=== PATIENT | male | born 1955 | race Caucasian/White ===

== ENCOUNTER 2020-11-11 12:27 | Day surgery (SDC) | payer MEDICARE, OTHER ==
[~2020-11-11 12:27] MED LIST: Lactated Ringers 1,000 ML IV SCH; Sodium Chloride 0.9% 10 ML SDV IV PRN; Sodium Chloride 0.9% 10 ML Syringe FLUSH PRN; Sodium Chloride 0.9% 2.5 ML Syringe FLUSH PRN
[2020-11-11] MEDS ORDERED: Ondansetron 4 MG/2 ML SDV ONE (12:58)
[2020-11-11] MEDS ORDERED: Propofol 200 MG/20 ML SDV ONE (12:59)
[2020-11-11] MEDS ORDERED: Midazolam 1 MG/ML 2 ML SDV ONE (12:59)
[2020-11-11] MEDS ORDERED: fentaNYL 100 MCG/2 ML SDV ONE (12:59)
--- NOTE | 2020-11-11 13:10 | PCM.PREANE ---
Preanesthetic Assessment - Anesthesia/Transfusion/Family Hx Anesthesia History: Prior Anesthesia Without Reaction Family History of Anesthesia Reaction: No Transfusion History: No Prior Transfusion(s) - Review of Systems General: No Symptoms Pulmonary: No Symptoms Cardiovascular: No Symptoms Gastrointestinal: No Symptoms Neurological: No Symptoms Other: Reports: None - Physical Assessment NPO Status Date: 11/11/20 NPO Status Time: 00:01 Height: 5 ft 10 in Weight: 208 lb ASA Class: 2 Mental Status: Alert & Oriented x3 Airway Class: Mallampati = 2 Dentition: Reports: Normal Dentition ROM/Head Extension: Full Lungs: Clear to Auscultation, Normal Respiratory Effort Cardiovascular: Regular Rate, Regular Rhythm - Allergies Allergies/Adverse Reactions: Allergies Allergy/AdvReac Type Severity Reaction Status Date / Time No Known Allergies Allergy Verified 11/05/20 10:15 - Anesthesia Plan Pre-Op Medication Ordered: None - Acknowledgements Anesthesia Type Planned: General Anesthesia Pt an Appropriate Candidate for the Planned Anesthesia: Yes Alternatives and Risks of Anesthesia Discussed w Pt/Guardian: Yes Pt/Guardian Understands and Agrees with Anesthesia Plan: Yes Additional Comments: npo titus w cpap no cv problems tob none etoh occ par no questions mbi 30 PreAnesthesia Questionnaire HEENT History: Reports: Other (See Below) Other HEENT History: uses reading glasses Cardiovascular History: Reports: High Cholesterol Respiratory History: Reports: Sleep Apnea Other Respiratory History: uses CPAP every night Gastrointestinal History: Reports: Diverticulosis Genitourinary History: Reports: None Musculoskeletal History: Reports: Fracture Other Musculoskeletal History: hx of fx left arm and leg Oncologic (Cancer) History: Reports: Malignant Melanoma Other Oncologic History: removed from neck- early stage- no treatment Dermatologic History: Reports: Melanoma - Past Surgical History Head Surgeries/Procedures: Reports: None Cardiovascular Surgical History: Reports: None GI Surgical History: Reports: Colonoscopy Male Surgical History: Reports: None Musculoskeletal Surgical History: Reports: ORIF Other Musculoskeletal Surgeries/Procedures:: ORIF left forearm (has plate), ORIF left ankle/foot (Has pin) Dermatological Surgical History: Reports: Skin Biopsy - SUBSTANCE USE Tobacco Use Status *Q: Former Tobacco User Tobacco Use Within Last Twelve Months: No Recreational Drug Use History: No - HOME MEDS Home Medications: Home Meds Ascorbic Acid [Vitamin C] 1,000 mg PO DAILY 11/05/20 [History] Aspirin [Adult Low Dose Aspirin EC] 81 mg PO DAILY 11/05/20 [History] Cholecalciferol (Vitamin D3) [Vitamin D3] 2,000 unit PO DAILY 11/05/20 [History] Fish Oil/Borage/Flax/Om3,6,9 1 [[place]eno 3-6-9 1,200 mg Softgel] 1,200 mg PO DAILY 11/05/20 [History] Multivitamin 1 tab PO DAILY 11/05/20 [History] atorvaSTATin Calcium [Atorvastatin Calcium] 20 mg PO DAILY 11/05/20 [History] - CURRENT (IN HOUSE) MEDS Current Meds: Current Medications Lactated Ringer's (Ringers, Lactated) 1,000 mls @ 125 mls/hr IV ASDIRECTED [facility] Last Admin: 11/11/20 13:06 Dose: 125 mls/hr Documented by: Sodium Chloride (Sodium Chloride 0.9% 10 Ml Syringe) 10 ml FLUSH ASDIRECTED PRN PRN Reason: Keep Vein Open Sodium Chloride (Sodium Chloride 0.9% 2.5 Ml Syringe) 2.5 ml FLUSH ASDIRECTED PRN PRN Reason: Keep Vein Open Sodium Chloride (Sodium Chloride 0.9% 10 Ml Syringe) 10 ml FLUSH ASDIRECTED PRN PRN Reason: Keep Vein Open Sodium Chloride (Sodium Chloride 0.9% 2.5 Ml Syringe) 2.5 ml FLUSH ASDIRECTED PRN PRN Reason: Keep Vein Open Sodium Chloride (Sodium Chloride 0.9% 10 Ml Sdv) 10 ml IV ASDIRECTED PRN PRN Reason: IV Use Discontinued Medications Fentanyl (Fentanyl 100 Mcg/2 Ml Sdv) Confirm Administered Dose 100 mcg .ROUTE .STK-MED ONE Stop: 11/11/20 13:00 Midazolam HCl (Midazolam 1 Mg/Ml 2 Ml Sdv) Confirm Administered Dose 2 mg .ROUTE .STK-MED ONE Stop: 11/11/20 13:00 Ondansetron HCl (Ondansetron 4 Mg/2 Ml Sdv) Confirm Administered Dose 4 mg .ROUTE .STK-MED ONE Stop: 11/11/20 12:59 Propofol (Propofol 200 Mg/20 Ml Sdv) Confirm Administered Dose 200 mg .ROUTE . STK-MED ONE Stop: 11/11/20 13:00
--- NOTE | 2020-11-11 14:41 | PCM.OPNOTE ---
- General Post-Op/Procedure Note Date of Surgery/Procedure: 11/11/20 Operative Procedure(s): Screening colonoscopy with polypectomy Findings: Ascending colon polyp, sigmoid colon diverticulosis Pre Op Diagnosis: Family history of colon cancer Post-Op Diagnosis: Ascending colon polyp, sigmoid diverticulosis Primary Surgeon: Vy Causey Condition: Good
--- NOTE | 2020-11-11 15:03 | PCM48HPAN ---
Post Anesthesia Note - EVALUATION WITHIN 48HRS OF ANESTHETIC Vital Signs in Normal Range: Yes Patient Participated in Evaluation: Yes Respiratory Function Stable: Yes Airway Patent: Yes Cardiovascular Function Stable: Yes Hydration Status Stable: Yes Pain Control Satisfactory: Yes Nausea and Vomiting Control Satisfactory: Yes Mental Status Recovered: Yes Vital Signs: Last Vital Signs Temp 97.2 F 11/11/20 12:40 Pulse 62 11/11/20 14:50 Resp 10 L 11/11/20 14:50 BP 116/70 11/11/20 14:50 Pulse Ox 94 L 11/11/20 14:50
--- NOTE | 2020-11-11 15:03 | PCM.POSTAN ---
POST ANESTHESIA ASSESSMENT - MENTAL STATUS Mental Status: Alert (no anesthetic problems), Oriented - VITAL SIGNS Vital Signs: Last Vital Signs Temp 97.2 F 11/11/20 12:40 Pulse 62 11/11/20 14:50 Resp 10 L 11/11/20 14:50 BP 116/70 11/11/20 14:50 Pulse Ox 94 L 11/11/20 14:50 - RESPIRATORY Respiratory Status: Respiratory Rate WNL, Airway Patent, O2 Saturation Stable - CARDIOVASCULAR CV Status: Pulse Rate WNL, Blood Pressure Stable - GASTROINTESTINAL GI Status: No Symptoms - POST OP HYDRATION Hydration Status: Adequate & Stable
--- NOTE | 2020-11-11 22:14 | OR ---
SURGEON: VY CAUSEY MD DATE OF PROCEDURE: 11/11/2020 PREOPERATIVE DIAGNOSES: Family history of colon cancer, history of diverticulosis. POSTOPERATIVE DIAGNOSES: 1. Ascending colon polyp. 2. Sigmoid colon diverticulosis. PROCEDURES PERFORMED: Screening colonoscopy with polypectomy. PRIMARY SURGEON: Vy Causey MD ANESTHESIA: MAC. INSTRUMENT USED: Olympus colonoscope. EXTENT OF THE EXAMINATION: To the cecum. PREPARATION: Good. LIMITATIONS: None. INDICATIONS FOR EXAMINATION: The patient is a 65-year-old male, who presents to the clinic for a repeat colonoscopy. He had one 10 years ago and was found to have diverticulosis. In that time, his father was diagnosed with colon cancer. He denies any changes in his bowel habits. The patient and I discussed the need for a colonoscopy. I explained the procedure, expected perioperative course, and the risks. He verbalized understanding and wishes to proceed. PROCEDURE IN DETAIL: The patient was brought to the endoscopy suite and placed in the left lateral decubitus position. A time-out was completed, verifying the patient's name, age, date of , allergies, and procedure to be performed. Monitored anesthesia care was induced, and continuous oxygen was provided via nasal cannula throughout the procedure. After adequate sedation was achieved, a digital rectal exam was performed. This exam was within normal limits. A well- lubricated colonoscope was inserted in the rectum and advanced under direct visualization to the level of the cecum. The cecum was identified by both visual and anatomic landmarks. A photograph was taken of the cecal cap; however, I was unable to retroflex the scope within the cecum due to looping of the scope more proximally. The scope was then straightened out and fully withdrawn while examining the color, texture, anatomy, and integrity of the mucosa from the cecum to the anal canal. The patient was noted to have a small ascending colon polyp in the distal ascending colon. This was removed in a piecemeal fashion using a cold biopsy forceps. The patient was noted to have diverticulosis throughout the sigmoid colon. The remainder of the exam was normal. The scope was brought into the rectum and retroflexed to allow visualization of the anal canal opening. This appeared normal, and a photograph was taken. The scope was then straightened out and fully withdrawn. The cecum- to-anus time was 9 minutes. The patient tolerated the procedure well and was transferred to the PACU in stable condition. ENDOSCOPIC DIAGNOSES: 1. Ascending colon polyp. 2. Sigmoid colon diverticulosis. RECOMMENDATION: Follow up in clinic in 2 weeks. МАРИНА GARCIA /[id number]
== END 2020-11-11 15:15 | disposition home or self-care (01) ==
LOC: MW.SDS 12:27
PROVIDERS: ATTEND Surgery
DX: Z12.11 Encounter for screening for malignant neoplasm of colon (principal); K57.30 Diverticulosis of large intestine without perforation or abscess without bleeding; K63.5 Polyp of colon; G47.31 Primary central sleep apnea; E78.00 Pure hypercholesterolemia, unspecified; Z79.82 Long term (current) use of aspirin; Z79.899 Other long term (current) drug therapy; Z80.0 Family history of malignant neoplasm of digestive organs; Z98.890 Other specified postprocedural states; Z87.891 Personal history of nicotine dependence
CPT/HCPCS: 45380; 88305; J2250; J2405; J2704; J3010; J7120; 00812

== ENCOUNTER 2025-01-13 22:00 | Emergency (ER) | payer MEDICARE, OTHER ==
[2025-01-14 00:10] LABS: HEMATOCRIT 46.2 % (42.0-52.0); HEMOGLOBIN 16.1 g/dL (14.0-18.0); MEAN CORPUSCULAR HEMOGLOBIN 31.4 pg (28.0-32.0); MEAN CORPUSCULAR HGB CONC 34.8 g/dL (32.0-36.0); MEAN CORPUSCULAR VOLUME 90.2 fL (83.0-99.0); PLATELET COUNT,PLT 250 K/uL (150-400); RED BLOOD CELL COUNT 5.12 M/uL (4.52-5.90); WHITE BLOOD CELL COUNT,WBC 10.82 K/uL (3.9-11.3)
[2025-01-14 00:38] LABS: CREATININE 1.3 mg/dL (0.8-1.3); EST CRCL DRUG DOSING (CG) 52.87 mL/min; MAGNESIUM 1.9 mg/dL (1.8-2.4); POTASSIUM,K 3.8 mmol/L (3.5-5.1)
== END 2025-01-14 01:25 | disposition home or self-care (01) ==
LOC: MW.ED 22:00
DX: I48.0 Paroxysmal atrial fibrillation (principal); E78.00 Pure hypercholesterolemia, unspecified; Z79.899 Other long term (current) drug therapy; Z79.82 Long term (current) use of aspirin
CPT/HCPCS: 36415; 80048; 83735; 85027; 93005; 93010; 99284; 99285

== ENCOUNTER 2025-03-18 11:00 | Emergency (ER) | payer MEDICARE, OTHER ==
[2025-03-18 11:38] LABS: BASOPHILS ABSOLUTE AUTO 0.05 K/uL (0.00-0.20); BASOPHILS PERCENT AUTO 0.6 % (0.0-1.0); EOSINOPHILS ABSOLUTE AUTO 0.08 K/uL (0.00-0.45); EOSINOPHILS PERCENT AUTO 0.9 % (0.0-6.0); IMMATURE GRAN ABSOLUTE AUTO 0.02 K/uL (0.00-0.05); IMMATURE GRAN PERCENT AUTO 0.2 % (0.0-0.4); LYMPHOCYTES ABSOLUTE AUTO 2.25 K/uL (1.00-4.80); LYMPHOCYTES PERCENT AUTO 25.7 % (24.0-44.0); MEAN PLATELET VOLUME 9.2 fL (9.4-12.4); MONOCYTES ABSOLUTE AUTO 0.67 K/uL (0.00-0.80); MONOCYTES PERCENT AUTO 7.7 % (0.0-8.0); NEUTROPHILS ABSOLUTE AUTO 5.68 K/uL (1.80-7.70); NEUTROPHILS PERCENT AUTO 64.9 % (41.0-71.0); NRBC ABSOLUTE 0.00 K/uL (0.00-0.02); NRBC PERCENT 0.0 /100WBC (0.0-0.2); PLATELET COUNT,PLT 256 K/uL (150-400); RED BLOOD CELL COUNT 5.14 M/uL (4.52-5.90); WHITE BLOOD CELL COUNT,WBC 8.75 K/uL (3.9-11.3)
[2025-03-18] MEDS ORDERED: Sodium Chloride 0.9% 10 ML Syringe FLUSH PRN (11:45)
[2025-03-18] MEDS ORDERED: Sodium Chloride 0.9% 2.5 ML Syringe FLUSH PRN (11:45)
[2025-03-18 12:02] LABS: INR 1.12 (0.86-1.11); PTT,PARTIAL THROMBOPLSTIN TIME 29.4 SEC (23.9-30.7)
[2025-03-18 12:09] LABS: A/G RATIO 1.2 (0.9-1.6); ALANINE AMINOTRANSFERASE,ALT 46 IU/L (14-63); ASPARTATE AMNIOTRANSFERASE,AST 28 IU/L (15-37); BILIRUBIN TOTAL 0.8 mg/dL (0.2-1.0); BLOOD UREA NITROGEN,BUN 18 mg/dL (7.0-18.0); CARBON DIOXIDE,CO2 29.0 mmol/L (21.0-32.0); CHLORIDE,CL 105 mmol/L (98-107); CREATININE 1.5 mg/dL (0.8-1.3); GLUCOSE RANDOM 83 mg/dL (74-106); POTASSIUM,K 4.4 mmol/L (3.5-5.1); PROTEIN TOTAL,TP 7.1 g/dL (6.4-8.2); SODIUM,NA 143 mmol/L (136-148)
[2025-03-18 12:12] LABS: ESTIMATED GFR 50 mL/min (>60)
[2025-03-18] MEDS: Alum Hydrox/Mag Hydrox/Simeth 15 ML, Lidocaine 2% 5 ML PO ONE (13:27)
[2025-03-18] MEDS: Iopamidol 755 MG/ML 500 ML Multipack Bottle IVPUSH STA (13:53)
== END 2025-03-18 16:38 | disposition home or self-care (01) ==
LOC: MW.ED 11:00
DX: R14.2 Eructation (principal); I48.91 Unspecified atrial fibrillation; E78.00 Pure hypercholesterolemia, unspecified; Z79.01 Long term (current) use of anticoagulants; Z79.899 Other long term (current) drug therapy
CPT/HCPCS: 36415; 71046; 71275; 74174; 80053; 83735; 84484; 85025; 85379; 85610; 85730; 93005; 96360; 99285; A9270; J7030; Q9967; 93010; 99284